=== PATIENT | male | born 1940 | race Hispanic/Latino ===

== ENCOUNTER 2019-01-18 20:54 | Inpatient (IN) | payer OTHER, MEDICARE ==
[~2019-01-18] VITALS: Ht 160 cm; Wt 83.0 kg
[~2019-01-18 20:54] MED LIST: ASPI-1197 PO; HYDR-4153 PO; LISI-613 PO; MULT-1285 PO; SIMV20TA6 PO
[2019-01-18] MEDS ORDERED: ACETAMINOPHEN 325 MG TAB ONE (21:08)
[2019-01-18] MEDS ORDERED: ONDANSETRON HCL 4 MG/2 ML VIAL ONE (21:08)
[2019-01-18 21:30] LABS: BASOPHILS % (AUTO) 0.1 % (0.0-5.0); HEMATOCRIT 34.5 % (42-54); LYMPHOCYTES % (AUTO) 2.9 % (21.0-51.0); MEAN CORPUSCULAR HEMOGLOBIN 31.2 pg (27.0-33.0); MEAN CORPUSCULAR HGB CONC 33.7 g/dL (32.0-36.0); MEAN CORPUSCULAR VOLUME 92.7 fL (79-99); MONOCYTES % (AUTO) 3.6 % (3.0-13.0); NEUTROPHILS % (AUTO) 93.4 % (40.0-77.0); PLATELET COUNT (AUTO) 147 K/uL (130-400); RED BLOOD CELL COUNT(AUTO) 3.73 MIL/uL (4.50-6.20); RED CELL DISTRIBUTION WIDTH 14.6 % (11.0-15.5); WHITE BLOOD COUNT (AUTO) 21.2 K/uL (4.8-10.8)
[2019-01-18] MEDS ORDERED: SODIUM CHLORIDE 0.9% 1000ML 1,000 ML IV ONE ×2 (21:35→23:40)
[2019-01-18 21:42] LABS: INR 1.2 (0.85-1.15); PARTIAL THROMBOPLASTIN TIME 33.4 SEC (26.3-35.5); PROTHROMBIN TIME 12.6 SEC (9.6-11.6)
[2019-01-18 21:49] LABS: CARBON DIOXIDE 19 mmol/L (21-32); CHLORIDE 102 mmol/L (101-111); CREATININE 3.2 mg/dL (0.5-1.5); GLOMERULAR FILTR. RATE CALC 20 mL/min (>60); GLUCOSE,RANDOM 102 mg/dL (70-105); POTASSIUM 4.1 mmol/L (3.5-5.1); SODIUM SERUM 137 mmol/L (136-145); UREA NITROGEN, BLOOD 38 mg/dL (7-18)
[2019-01-18 21:53] LABS: RAPID GROUP A STREP NEGATIVE (NEGATIVE)
[2019-01-18 22:27] LABS: ALANINE AMINOTRANSFERASE 16 U/L (12-78); ALBUMIN 3.2 g/dL (3.5-5.0); ASPARTATE AMINOTRANSFERASE 43 U/L (10-37); BILIRUBIN,TOTAL 0.9 mg/dL (0.2-1.0); MYOGLOBIN 4369 ng/mL (10-92); TOTAL PROTEIN, SERUM 6.7 g/dL (6.0-8.3); TROPONIN I < 0.04 ng/mL (0.00-0.06)
[2019-01-18 22:30] LABS: CREATINE KINASE, TOTAL 895 U/L (21-232)
[2019-01-18] MEDS ORDERED: LEVOFLOXACIN 500 MG/D5W 100 ML 100 ML ONE (22:53)
[2019-01-18] MEDS ORDERED: ACETAMINOPHEN 325 MG TAB PO PRN (23:00)
[2019-01-18] MEDS ORDERED: MORPHINE SULFATE 2 MG/ML 1ML SYG IV PRN (23:00)
[2019-01-18] MEDS ORDERED: ONDANSETRON HCL 4 MG/2 ML VIAL IV PRN (23:00)
[2019-01-19 01:30] VITALS: BP 104/54
[2019-01-19] MEDS: SODIUM CHLORIDE 0.9% 1000ML 1,000 ML IV SCH ×2 (01:46→15:56)
[2019-01-19] MEDS: METRONIDAZOLE 500MG/100ML BAG 100 ML IV SCH ×2 (01:46→08:50)
[2019-01-19] MEDS ORDERED: LEVO25TA54 PO (02:19)
[2019-01-19] MEDS ORDERED: POTA-79 PO (02:19)
[2019-01-19] MEDS ORDERED: ATOR20TA PO (02:19)
[2019-01-19] MEDS ORDERED: AMLO5TAB4 PO (02:19)
[2019-01-19] MEDS ORDERED: FERR325T22 PO (02:19)
[2019-01-19] MEDS ORDERED: FURO40TA5 PO (02:19)
[2019-01-19 04:00] VITALS: BP 124/54
[2019-01-19 04:23] LABS: BASOPHILS % (AUTO) 0.3 % (0.0-5.0); HEMATOCRIT 30.5 % (42-54); LYMPHOCYTES % (AUTO) 4.1 % (21.0-51.0); MEAN CORPUSCULAR HEMOGLOBIN 30.7 pg (27.0-33.0); NEUTROPHILS % (AUTO) 92.6 % (40.0-77.0); PLATELET COUNT (AUTO) 128 K/uL (130-400); RED BLOOD CELL COUNT(AUTO) 3.28 MIL/uL (4.50-6.20); RED CELL DISTRIBUTION WIDTH 14.7 % (11.0-15.5); WHITE BLOOD COUNT (AUTO) 16.4 K/uL (4.8-10.8)
[2019-01-19 04:41] LABS: CREATININE 2.9 mg/dL (0.5-1.5); POTASSIUM 4.4 mmol/L (3.5-5.1)
[2019-01-19] MEDS: LEVOTHYROXINE 25 MCG TABLET PO SCH (05:56)
--- NOTE | 2019-01-19 06:30 | NUR ---
Critical lab Received call regarding CK being 0722, aware of results patient also admitted with dx of rhabdo.
[2019-01-19 08:00] VITALS: BP 111/54
[2019-01-19] MEDS: POTASSIUM CHLORIDE 20 MEQ ERTAB PO SCH (08:49)
[2019-01-19] MEDS: FERROUS SULFATE 325 MG TABLET.DR PO SCH ×2 (08:49→21:07)
[2019-01-19] MEDS: ASPIRIN 81MG TAB.CHEW PO SCH (08:49)
[2019-01-19] MEDS: MULTIVITAMIN WITH MINERALS TABLET PO SCH (08:49)
[2019-01-19] MEDS: ENOXAPARIN SODIUM 30 MG/0.3 ML SQ SCH (08:50)
[2019-01-19] MEDS: AMLODIPINE BESYLATE 5 MG TAB PO SCH (08:50)
[2019-01-19] MEDS: FAMOTIDINE/PF 20 MG/2 ML VIAL IV SCH (08:51)
[2019-01-19] MEDS ORDERED: FUROSEMIDE 40 MG TABLET PO SCH (09:00)
[2019-01-19 12:00] VITALS: BP 114/55
--- NOTE | 2019-01-19 15:02 | NUR ---
DCP CM met with pt discussed dc plans. Pt is independent prior to admission, lives at home with spouse. Has a provider 18hrs/wk. Denies any equipments/services. Pt feels safe to go back home, spouse and son able to assist with transportation and needs. DC plan to home once stable. CM to cont to follow up. Addendum: 01/19/19 at 1503 by LESLEY FARFAN LVN CM Amended: Links added.
[2019-01-19] MEDS: CEFAZOLIN SODIUM 1 GM VIAL IVP SCH (15:56)
[2019-01-19 16:00] VITALS: BP 111/57
[2019-01-19] MEDS ORDERED: PHARMACY COMMUNICATION MISC SCH (16:30)
--- NOTE | 2019-01-19 18:07 | NUR ---
DR. PRECIADO JUST CALLED BACK. AWARE OF CONSULT. STATED HE WILL COME TO SEE PT LATER TODAY.
[2019-01-19] MEDS: LINEZOLID 600 MG/ISO-OSM 300 ML IV SCH (19:33)
[2019-01-19 20:00] VITALS: BP 115/52
[2019-01-19] MEDS: ATORVASTATIN CALCIUM 20 MG TABLET PO SCH (21:07)
[2019-01-20] VITALS (7 sets, daily range): BP systolic 97–122; BP diastolic 44–66
[2019-01-20 03:26] LABS: APPEARANCE,URINE Clear (CLEAR); BILIRUBIN,URINE Negative (NEGATIVE); COLOR,URINE Yellow (YELLOW); GLUCOSE, URINE (UA) Negative (NEGATIVE); KETONES,URINE Negative (NEGATIVE); LEUKOCYTE ESTERASE ,URINE Negative (NEGATIVE); NITRATE,URINE Negative (NEGATIVE); OCCULT BLOOD,URINE Moderate (NEGATIVE); PROTEIN,URINE POS 1+ mg/dL (NEGATIVE); UROBILINOGEN,URINE 0.2 mg/dL (0.2-1.0)
[2019-01-20 03:52] LABS: BASOPHILS % (AUTO) 0.2 % (0.0-5.0); EOSINOPHILS % (AUTO) 0.5 % (0.0-8.0); HEMATOCRIT 27.9 % (42-54); LYMPHOCYTES % (AUTO) 10.7 % (21.0-51.0); MEAN CORPUSCULAR HEMOGLOBIN 32.2 pg (27.0-33.0); MEAN CORPUSCULAR HGB CONC 34.4 g/dL (32.0-36.0); MEAN CORPUSCULAR VOLUME 93.6 fL (79-99); MONOCYTES % (AUTO) 6.7 % (3.0-13.0); NEUTROPHILS % (AUTO) 81.9 % (40.0-77.0); PLATELET COUNT (AUTO) 103 K/uL (130-400); RED BLOOD CELL COUNT(AUTO) 2.98 MIL/uL (4.50-6.20); RED CELL DISTRIBUTION WIDTH 14.4 % (11.0-15.5); WHITE BLOOD COUNT (AUTO) 11.2 K/uL (4.8-10.8)
[2019-01-20] MEDS: CEFAZOLIN SODIUM 1 GM VIAL IVP SCH ×2 (03:53→15:11)
[2019-01-20 04:08] LABS: CREATININE 2.7 mg/dL (0.5-1.5); POTASSIUM 3.5 mmol/L (3.5-5.1)
[2019-01-20 04:09] LABS: BACTERIA,URINE None Seen /HPF (None Seen); MUCUS,URINE Few LPF (None Seen); SQUAMOUS EPITHELIAL CELL,UR Few /HPF (0-2); WBC,URINE 0-1 /HPF (0-1)
[2019-01-20 04:18] LABS: CRP QUANTITATIVE 233.1 mg/L (0.00-9.0)
[2019-01-20 04:57] LABS: ERYTHROCYTE SEDIMENTATION RATE 40 MM/HR (0-20)
[2019-01-20] MEDS: LEVOTHYROXINE 25 MCG TABLET PO SCH (06:50)
[2019-01-20] MEDS: LINEZOLID 600 MG/ISO-OSM 300 ML IV SCH ×2 (06:51→18:02)
[2019-01-20] MEDS: AMLODIPINE BESYLATE 5 MG TAB PO SCH (09:00)
[2019-01-20] MEDS: ASPIRIN 81MG TAB.CHEW PO SCH (10:23)
[2019-01-20] MEDS: MULTIVITAMIN WITH MINERALS TABLET PO SCH (10:23)
[2019-01-20] MEDS: FERROUS SULFATE 325 MG TABLET.DR PO SCH ×2 (10:23→20:40)
[2019-01-20] MEDS: POTASSIUM CHLORIDE 20 MEQ ERTAB PO SCH (10:24)
[2019-01-20] MEDS: ENOXAPARIN SODIUM 30 MG/0.3 ML SQ SCH (10:25)
[2019-01-20] MEDS: FAMOTIDINE/PF 20 MG/2 ML VIAL IV SCH (10:25)
[2019-01-20] MEDS: SODIUM CHLORIDE 0.9% 1000ML 1,000 ML IV SCH ×2 (10:33→14:31)
--- NOTE | 2019-01-20 14:00 | NUR ---
DR. HEMANT TRIVEDI HERE TO SEE PATIENT. TOLD PATIENT THAT HE MAY REQUIRE IV ANTIBIOTICS FOR 3 WEEKS.
--- NOTE | 2019-01-20 14:16 | NUR ---
DR. ILANA TRIVEDI HERE TO SEE PATIENT. NO NEW ORDERS. RECOMMENDS TO CONTINUE IV ANTIBIOTICS FOR NOW AND IV HYDRATION.
--- NOTE | 2019-01-20 18:00 | NUR ---
cm note discussed dc planning with 3 sons present in room and with pt, informed that md has ordered iv antibiotic therapy,for approx 3 weeks. and is recommending [facility], explained level of care.and answered questions, pt is hesistant to sign consent, would like to speak to MD first, pt and sons did agree for rep from [facility], come and speak to him and sons at 230pm tomorrow. in order to discuss questions they have about facility. called Mandi rep from [facility] and states will come and speak to pt tomorrow at 230pmupdated primary nurse.
[2019-01-20] MEDS: ATORVASTATIN CALCIUM 20 MG TABLET PO SCH (20:40)
[2019-01-20] MEDS ORDERED: LEVOFLOXACIN 500 MG/D5W 100 ML 100 ML IV SCH (21:00)
[2019-01-21] MEDS: SODIUM CHLORIDE 0.9% 1000ML 1,000 ML IV SCH ×2 (03:46→17:52)
[2019-01-21] MEDS: CEFAZOLIN SODIUM 1 GM VIAL IVP SCH ×2 (03:52→15:04)
[2019-01-21 04:00] VITALS: BP 100/51
[2019-01-21 05:14] LABS: HEMATOCRIT 26.4 % (42-54); MEAN CORPUSCULAR HEMOGLOBIN 30.9 pg (27.0-33.0); MEAN CORPUSCULAR HGB CONC 33.4 g/dL (32.0-36.0); MEAN CORPUSCULAR VOLUME 92.6 fL (79-99); PLATELET COUNT (AUTO) 97 K/uL (130-400); RED BLOOD CELL COUNT(AUTO) 2.85 MIL/uL (4.50-6.20); RED CELL DISTRIBUTION WIDTH 14.8 % (11.0-15.5); WHITE BLOOD COUNT (AUTO) 6.4 K/uL (4.8-10.8)
[2019-01-21 05:30] LABS: BASOPHILS % (MANUAL) 1 % (0-2); EOSINOPHILS % (MANUAL) 2 % (1-6); LYMPHOCYTES % (MANUAL) 9 % (22-44); MAN.DIFF COMMENT-IMPRESSION MANUAL DIFFERENTIAL; MONOCYTES % (MANUAL) 6 % (2-9); SEGMENTED NEUTROPHILS % 82 % (40-70)
[2019-01-21 05:31] LABS: PLATELET MORPHOLOGY COMMENT ADEQUATE
[2019-01-21 05:34] LABS: CREATININE 1.7 mg/dL (0.5-1.5)
[2019-01-21] MEDS: LEVOTHYROXINE 25 MCG TABLET PO SCH (06:22)
[2019-01-21] MEDS: LINEZOLID 600 MG/ISO-OSM 300 ML IV SCH ×2 (06:22→18:43)
[2019-01-21 08:00] VITALS: BP 107/53
[2019-01-21] MEDS: AMLODIPINE BESYLATE 5 MG TAB PO SCH (09:00)
[2019-01-21] MEDS: ENOXAPARIN SODIUM 30 MG/0.3 ML SQ SCH (09:00)
[2019-01-21] MEDS ORDERED: CALCIUM GLUCONATE 1 GM/10 ML VIAL IV SCH (09:30)
[2019-01-21] MEDS ORDERED: CALCIUM GLUCONATE 1 GM in SODIUM CHLORIDE 0.9% 50 ML IV SCH (10:00)
--- NOTE | 2019-01-21 10:00 | NUR ---
LOVENOX NON-ADMIN DID NOT ADMINISTER SCHEDULED LOVENOX DUE TO PLATELET RESULT 97. INFORMED DR. WHITESIDE AND ORDERED NOT TO ADMINISTER LOVENOX FOR TODAY.
[2019-01-21] MEDS ORDERED: POTASSIUM CHLORIDE 20MEQ/100ML 100 ML IV PRN (10:15)
[2019-01-21] MEDS ORDERED: POTASSIUM CHLORIDE 10% ELIXIR 20 MEQ/15 ML UDCUP PO PRN (10:15)
[2019-01-21] MEDS ORDERED: LIDOCAINE HCL-MPF 1% 2ML VIAL IVP PRN (10:15)
[2019-01-21] MEDS: POTASSIUM CHLORIDE 20 MEQ ERTAB PO SCH ×2 (10:43→12:49)
[2019-01-21] MEDS: FERROUS SULFATE 325 MG TABLET.DR PO SCH ×2 (10:43→21:04)
[2019-01-21] MEDS: MULTIVITAMIN WITH MINERALS TABLET PO SCH (10:43)
[2019-01-21] MEDS: ASPIRIN 81MG TAB.CHEW PO SCH (10:43)
[2019-01-21] MEDS: FAMOTIDINE/PF 20 MG/2 ML VIAL IV SCH (10:44)
[2019-01-21 11:18] LABS: % IRON SATURATION 22.5 % (30-44)
[2019-01-21] MEDS ORDERED: MAGNESIUM 2GM PREMIX 50ML 50 ML IV PRN (11:45)
[2019-01-21 11:50] VITALS: BP 114/51
[2019-01-21] MEDS: POTASSIUM CHLORIDE 20 MEQ ERTAB PO PRN ×3 (12:49→17:59)
[2019-01-21 16:00] VITALS: BP 116/60
[2019-01-21 20:00] VITALS: BP 118/67
[2019-01-21] MEDS: ATORVASTATIN CALCIUM 20 MG TABLET PO SCH (21:04)
[2019-01-22] VITALS: BP 117/54
[2019-01-22 04:00] VITALS: BP 87/42
[2019-01-22 05:04] LABS: HEMATOCRIT 27.2 % (42-54); MEAN CORPUSCULAR HEMOGLOBIN 32.3 pg (27.0-33.0); MEAN CORPUSCULAR HGB CONC 34.7 g/dL (32.0-36.0); MEAN CORPUSCULAR VOLUME 93.1 fL (79-99); NUCLEATED RED BLOOD CELLS 0.1 % (0.0-0.19); PLATELET COUNT (AUTO) 92 K/uL (130-400); RED BLOOD CELL COUNT(AUTO) 2.92 MIL/uL (4.50-6.20); RED CELL DISTRIBUTION WIDTH 14.7 % (11.0-15.5); WHITE BLOOD COUNT (AUTO) 5.6 K/uL (4.8-10.8)
[2019-01-22 05:12] LABS: BAND NEUTROPHILS % (MANUAL) 2 % (0-2); EOSINOPHILS % (MANUAL) 2 % (1-6); LYMPHOCYTES % (MANUAL) 18 % (22-44); MAN.DIFF COMMENT-IMPRESSION MANUAL DIFFERENTIAL; MONOCYTES % (MANUAL) 11 % (2-9); PLATELET MORPHOLOGY COMMENT ADEQUATE; SEGMENTED NEUTROPHILS % 67 % (40-70)
[2019-01-22 05:31] LABS: ALBUMIN 2.2 g/dL (3.5-5.0); BILIRUBIN,TOTAL 0.2 mg/dL (0.2-1.0); CREATININE 2.2 mg/dL (0.5-1.5); MAGNESIUM 2.4 mg/dL (1.80-2.40); POTASSIUM 4.6 mmol/L (3.5-5.1); TOTAL PROTEIN, SERUM 5.1 g/dL (6.0-8.3)
[2019-01-22] MEDS: LINEZOLID 600 MG/ISO-OSM 300 ML IV SCH ×2 (05:49→16:58)
[2019-01-22] MEDS: CEFAZOLIN SODIUM 1 GM VIAL IVP SCH ×2 (05:49→16:42)
[2019-01-22] MEDS: LEVOTHYROXINE 25 MCG TABLET PO SCH (06:15)
[2019-01-22 07:51] VITALS: BP 117/58
[2019-01-22] MEDS: ENOXAPARIN SODIUM 30 MG/0.3 ML SQ SCH (09:00)
[2019-01-22] MEDS: FERROUS SULFATE 325 MG TABLET.DR PO SCH ×2 (09:17→20:49)
[2019-01-22] MEDS: ASPIRIN 81MG TAB.CHEW PO SCH (09:17)
[2019-01-22] MEDS: AMLODIPINE BESYLATE 5 MG TAB PO SCH (09:18)
[2019-01-22] MEDS: POTASSIUM CHLORIDE 20 MEQ ERTAB PO SCH (09:18)
[2019-01-22] MEDS: FAMOTIDINE/PF 20 MG/2 ML VIAL IV SCH (09:18)
[2019-01-22] MEDS: MULTIVITAMIN WITH MINERALS TABLET PO SCH (09:18)
--- NOTE | 2019-01-22 09:21 | NUR ---
LOVENOX HELD, PLT. COUNT BELOW 100.
[2019-01-22 12:00] VITALS: BP 119/57
--- NOTE | 2019-01-22 14:45 | NUR ---
DR. MARCOS IN TO SEE PT. ORDER FOR PICC LINE PLACEMENT ENTERED.
[2019-01-22 16:00] VITALS: BP 125/50
[2019-01-22 16:13] LABS: INR 0.97 (0.85-1.15); PROTHROMBIN TIME 10.2 SEC (9.6-11.6)
--- NOTE | 2019-01-22 16:30 | NUR ---
ZOLTAN WITH DR. PEREZ CALLED, PER PT. AT THIS TIME DOES NOT NEED TO BE SEEN BY HER BUT HE CAN FOLLOW UP AN OUT PATIENT. PATIENT AND FAMILY NOTIFIED.
[2019-01-22] MEDS: SODIUM CHLORIDE 0.9% 1000ML 1,000 ML IV SCH ×2 (16:58→19:46)
--- NOTE | 2019-01-22 18:00 | NUR ---
PICC LINE PLACED RT. UPPER ARM BY MANDI HWANG
[2019-01-22 20:00] VITALS: BP 143/69
[2019-01-22] MEDS: ATORVASTATIN CALCIUM 20 MG TABLET PO SCH (20:49)
[2019-01-23] VITALS: BP 97/49
[2019-01-23] MEDS: CEFAZOLIN SODIUM 1 GM VIAL IVP SCH ×2 (03:25→15:52)
[2019-01-23 04:00] VITALS: BP 97/40
[2019-01-23 04:42] LABS: BASOPHILS % (AUTO) 0.4 % (0.0-5.0); EOSINOPHILS % (AUTO) 3.2 % (0.0-8.0); LYMPHOCYTES % (AUTO) 24.1 % (21.0-51.0); MEAN CORPUSCULAR HGB CONC 33.3 g/dL (32.0-36.0); MONOCYTES % (AUTO) 11.2 % (3.0-13.0); NEUTROPHILS % (AUTO) 61.1 % (40.0-77.0); NUCLEATED RED BLOOD CELLS 0.1 % (0.0-0.19); PLATELET COUNT (AUTO) 114 K/uL (130-400); RED CELL DISTRIBUTION WIDTH 14.5 % (11.0-15.5); WHITE BLOOD COUNT (AUTO) 5.2 K/uL (4.8-10.8)
[2019-01-23 05:05] LABS: CREATININE 1.9 mg/dL (0.5-1.5); POTASSIUM 4.3 mmol/L (3.5-5.1)
[2019-01-23] MEDS: LINEZOLID 600 MG/ISO-OSM 300 ML IV SCH ×2 (06:33→17:48)
[2019-01-23] MEDS: LEVOTHYROXINE 25 MCG TABLET PO SCH (06:35)
[2019-01-23 08:00] VITALS: BP 114/55
[2019-01-23] MEDS: MULTIVITAMIN WITH MINERALS TABLET PO SCH (10:23)
[2019-01-23] MEDS: FERROUS SULFATE 325 MG TABLET.DR PO SCH ×2 (10:23→21:13)
[2019-01-23] MEDS: FAMOTIDINE/PF 20 MG/2 ML VIAL IV SCH (10:23)
[2019-01-23] MEDS: AMLODIPINE BESYLATE 5 MG TAB PO SCH (10:23)
[2019-01-23] MEDS: ASPIRIN 81MG TAB.CHEW PO SCH (10:23)
[2019-01-23] MEDS: ENOXAPARIN SODIUM 30 MG/0.3 ML SQ SCH (10:24)
[2019-01-23] MEDS: POTASSIUM CHLORIDE 20 MEQ ERTAB PO SCH (10:24)
[2019-01-23 11:40] VITALS: BP 124/51
[2019-01-23 16:00] VITALS: BP 136/67
--- NOTE | 2019-01-23 17:10 | NUR ---
FRANK PANTOJA FOR [facility] Addendum: 01/23/19 at 1937 by MARLEN AMARAL RN CM Amended: Links added.
[2019-01-23 20:00] VITALS: BP 124/58
[2019-01-23] MEDS: ATORVASTATIN CALCIUM 20 MG TABLET PO SCH (21:13)
[2019-01-23] MEDS: SODIUM CHLORIDE 0.9% 1000ML 1,000 ML IV SCH (21:14)
[2019-01-24] VITALS: BP 123/53
[2019-01-24 04:00] VITALS: BP 111/42
[2019-01-24] MEDS: LEVOTHYROXINE 25 MCG TABLET PO SCH (05:22)
[2019-01-24] MEDS: LINEZOLID 600 MG/ISO-OSM 300 ML IV SCH (05:22)
[2019-01-24] MEDS: CEFAZOLIN SODIUM 1 GM VIAL IVP SCH (05:22)
[2019-01-24 06:49] LABS: BASOPHILS % (AUTO) 0.6 % (0.0-5.0); EOSINOPHILS % (AUTO) 4.2 % (0.0-8.0); HEMATOCRIT 26.6 % (42-54); LYMPHOCYTES % (AUTO) 22.7 % (21.0-51.0); MEAN CORPUSCULAR HGB CONC 34.5 g/dL (32.0-36.0); MEAN CORPUSCULAR VOLUME 92.8 fL (79-99); MONOCYTES % (AUTO) 8.2 % (3.0-13.0); NEUTROPHILS % (AUTO) 64.3 % (40.0-77.0); PLATELET COUNT (AUTO) 141 K/uL (130-400); RED BLOOD CELL COUNT(AUTO) 2.87 MIL/uL (4.50-6.20); RED CELL DISTRIBUTION WIDTH 14.4 % (11.0-15.5)
[2019-01-24 06:53] LABS: CREATININE 1.7 mg/dL (0.5-1.5); POTASSIUM 4.1 mmol/L (3.5-5.1)
[2019-01-24 07:51] VITALS: BP 127/51
[2019-01-24] MEDS: AMLODIPINE BESYLATE 5 MG TAB PO SCH (09:00)
[2019-01-24 11:36] VITALS: BP 131/50
[2019-01-24] MEDS: SODIUM CHLORIDE 0.9% 1000ML 1,000 ML IV SCH (12:11)
[2019-01-24] MEDS: MULTIVITAMIN WITH MINERALS TABLET PO SCH (12:11)
[2019-01-24] MEDS: POTASSIUM CHLORIDE 20 MEQ ERTAB PO SCH (12:12)
[2019-01-24] MEDS: ASPIRIN 81MG TAB.CHEW PO SCH (12:12)
[2019-01-24] MEDS: FAMOTIDINE/PF 20 MG/2 ML VIAL IV SCH (12:12)
[2019-01-24] MEDS: FERROUS SULFATE 325 MG TABLET.DR PO SCH (12:12)
[2019-01-24] MEDS: ENOXAPARIN SODIUM 30 MG/0.3 ML SQ SCH (12:14)
--- NOTE | 2019-01-24 13:35 | NUR ---
ATTEMPTED TO CALL [facility] TO GIVE REPORT TRANSFERRED TO NURSES STATION AND PLACED ON HOLD. NO ANSWER FOR APPROXIMATELY 8 MINUTES.
--- NOTE | 2019-01-24 13:48 | NUR ---
RE-ATTEMPTED TO CALL [facility] WAS TRANSFERRED TO NURSES STATION AND RECEIVED AUTOMATED MESSAGE THAT MY CALL IS UNABLE TO BE ANSWERED.
--- NOTE | 2019-01-24 14:03 | NUR ---
REATTEMPTED TO CALL [facility] FOR REPORT SPOKE TO KATTY [phone] WHO TOLD ME THAT THE NURSE WAS BUSY WITH A PATIENT AND WOULD RETURN MY CALL IN ABOUT 30 MINUTES
--- NOTE | 2019-01-24 14:45 | NUR ---
DISCHARGE RECEIVED CALLBACK FROM JUDI Pichardo LVN OF [facility] [id number]. INFORMED LIYAH LAU THAT ORIGINAL RX (ANCEF, DIFLUCAN) PLACED IN PATIENT CHART COPY FOLDER AND LAST TIME DOSE GIVEN. MEDICATION RECONCILIATION PAPERWORK FAXED TO [facility] [phone]. CHEST XRAY REPORT PLACED IN PATIENT CHART COPY PER LIYAH LAU REQUEST. REMOVED 20G IV FROM RIGHT FA, CATHETER TIP INTACT. PATIENT TO BE DISCHARGE WITH RIGHT UPPER ARM 5 FR PICC LINE, DOUBLE LUMEN. BOTH LUMENS FLUSHED WITH SALINE AND ABLE TO ASPIRATE BLOOD IN EACH PORT, PICC LINE DRESSING CLEAN AND INTACT AT TIME OF DISCHARGE. LIYAH LAU INFORMED THAT PATIENT IS READY FOR PICKUP IN ROOM 419.
== END 2019-01-24 15:20 | DRG 871 ==
LOC: EDH 20:54 → EDHIP 22:45 → 4CH 01-19 01:30
PROVIDERS: ADMIT Internal Medicine; ATTEND Internal Medicine
PROC: 02HV33Z Insertion of Infusion Device into Superior Vena Cava, Percutaneous Approach (ICD-10-PCS; principal; 2019-01-22)
DX: A41.9 Sepsis, unspecified organism (principal); N17.0 Acute kidney failure with tubular necrosis; N18.4 Chronic kidney disease, stage 4 (severe); M62.82 Rhabdomyolysis; E87.2 Acidosis; E44.0 Moderate protein-calorie malnutrition; L03.116 Cellulitis of left lower limb; L03.115 Cellulitis of right lower limb; K52.9 Noninfective gastroenteritis and colitis, unspecified; R65.20 Severe sepsis without septic shock; K44.9 Diaphragmatic hernia without obstruction or gangrene; Q63.1 Lobulated, fused and horseshoe kidney; E11.22 Type 2 diabetes mellitus with diabetic chronic kidney disease; I12.9 Hypertensive chronic kidney disease with stage 1 through stage 4 chronic kidney disease, or unspecified chronic kidney disease; K57.30 Diverticulosis of large intestine without perforation or abscess without bleeding; E66.9 Obesity, unspecified; I89.0 Lymphedema, not elsewhere classified; E83.51 Hypocalcemia; D63.1 Anemia in chronic kidney disease; E78.5 Hyperlipidemia, unspecified; B35.9 Dermatophytosis, unspecified; D69.6 Thrombocytopenia, unspecified; E03.9 Hypothyroidism, unspecified; E11.21 Type 2 diabetes mellitus with diabetic nephropathy; F32.9 Major depressive disorder, single episode, unspecified; M60.9 Myositis, unspecified; Z68.32 Body mass index [BMI] 32.0-32.9, adult; Z86.79 Personal history of other diseases of the circulatory system; Z83.3 Family history of diabetes mellitus; Z82.5 Family history of asthma and other chronic lower respiratory diseases; Z82.49 Family history of ischemic heart disease and other diseases of the circulatory system; Z82.3 Family history of stroke; Z82.0 Family history of epilepsy and other diseases of the nervous system
CPT/HCPCS: 36415; 71045; 74176; 80048; 80053; 81001; 82270; 82550; 82607; 82746; 83540; 83550; 83605; 83735; 83874; 83880; 84484; 85025; 85610; 85651; 85730; 86140; 87040; 87088; 87507; 87804; 87880; 93005; 93970; C1894; G0378; J0610; J0690; J1650; J1956; J2020; J2405; J3475; J3480; J3490; J7030

== ENCOUNTER 2020-01-19 12:50 | Inpatient (IN) | payer OTHER, MEDICARE ==
[~2020-01-19] VITALS: Ht 175.3 cm; Wt 81.7 kg
[~2020-01-19 12:50] MED LIST changes: +AMLO5TAB4 PO; +ATOR20TA PO; +FERR325T22 PO; +FURO40TA5 PO; -HYDR-4153 PO; +LEVO25TA54 PO; -LISI-613 PO; +POTA-79 PO; -SIMV20TA6 PO
[2020-01-19 14:04] LABS: BASOPHILS % (AUTO) 0.1 % (0.0-5.0); HEMATOCRIT 31.1 % (42-54); LYMPHOCYTES % (AUTO) 5.2 % (21.0-51.0); MEAN CORPUSCULAR HEMOGLOBIN 29.9 pg (27.0-33.0); MEAN CORPUSCULAR HGB CONC 34.1 g/dL (32.0-36.0); MEAN CORPUSCULAR VOLUME 87.9 fL (79-99); MONOCYTES % (AUTO) 10.3 % (3.0-13.0); NEUTROPHILS % (AUTO) 83.6 % (40.0-77.0); PLATELET COUNT (AUTO) 117 K/uL (130-400); RED BLOOD CELL COUNT(AUTO) 3.54 MIL/uL (4.50-6.20); RED CELL DISTRIBUTION WIDTH 13.8 % (11.0-15.5); WHITE BLOOD COUNT (AUTO) 8.9 K/uL (4.8-10.8)
[2020-01-19 14:14] LABS: INR 0.95 (0.85-1.15); PARTIAL THROMBOPLASTIN TIME 32.1 SEC (26.3-35.5); PROTHROMBIN TIME 10.3 SEC (9.6-11.6)
[2020-01-19 14:18] LABS: ALBUMIN 2.4 g/dL (3.5-5.0); BILIRUBIN,TOTAL 1.2 mg/dL (0.2-1.0); CREATININE 3.2 mg/dL (0.5-1.5); POTASSIUM 3.1 mmol/L (3.5-5.1); TOTAL PROTEIN, SERUM 6.4 g/dL (6.0-8.3)
[2020-01-19 14:21] LABS: B-TYPE NATRIURETIC PEPTIDE 263 pg/mL (0-100)
[2020-01-19] MEDS ORDERED: ZOSYN 3.375GM+NS 50ML 50 ML IV ONE (14:21)
[2020-01-19] MEDS ORDERED: DEXAMETHASONE SOD PHOSPHATE 4 MG/ML 1ML VIAL ONE (14:21)
[2020-01-19] MEDS ORDERED: VANCOMYCIN 1GM+NS 250ML 250 ML IV ONE (14:21)
[2020-01-19] MEDS ORDERED: HYDRALAZINE HCL 20 MG/ML VIAL IV PRN (14:30)
[2020-01-19] MEDS ORDERED: LACTULOSE 20 GM/30 ML UDCUP PO PRN (14:30)
[2020-01-19] MEDS ORDERED: LABETALOL 20 MG/4 ML DISP.SYRIN IV PRN (14:30)
[2020-01-19] MEDS ORDERED: ZOLPIDEM TARTRATE 5 MG TAB PO PRN (14:30)
[2020-01-19] MEDS ORDERED: LOPERAMIDE HCL 2 MG CAP PO PRN (14:30)
[2020-01-19] MEDS ORDERED: ONDANSETRON HCL 4 MG/2 ML VIAL IVP PRN (14:30)
[2020-01-19] MEDS ORDERED: ALBUTEROL SULFATE/IPRATROPIUM 103/18 MCG/PUFF 14.7 GM INHR IH SCH (23:30)
[2020-01-19] MEDS ORDERED: SODIUM BICARB 50MEQ 50ML VIAL IV ONE (23:30)
[2020-01-19] MEDS ORDERED: DEXTROSE 5 % AND 0.9 % NACL 1,000 ML IV SCH (23:30)
[2020-01-19] MEDS ORDERED: ASPIRIN 325MG EC TAB 325 MG TABLET.DR PO SCH (23:30)
[2020-01-19] MEDS ORDERED: PHARMACY COMMUNICATION MISC SCH (23:30)
[2020-01-19] MEDS ORDERED: ENOXAPARIN SODIUM 40 MG/0.4 ML SYRINGE SQ SCH (23:30)
[2020-01-19] MEDS ORDERED: DEXTROSE 5 %-0.45 % NACL 1,000 ML IV ONE (23:36)
[2020-01-19] MEDS ORDERED: ACETAMINOPHEN 325 MG TAB PO PRN (23:45)
[2020-01-19] MEDS ORDERED: FAMOTIDINE/PF 20 MG/2 ML VIAL IV SCH (23:45)
[2020-01-19] MEDS ORDERED: DEXTROSE 5 %-0.45 % NACL 1,000 ML IV SCH (23:45)
--- NOTE | 2020-01-19 23:45 | NUR ---
CRITICAL RESULTS OF A LACTIC ACID OF 3.1 CALLED IN TO . TY SETHI NP CALLED BACK. NEW ORDERS RECEIVED AND CARRIED OUT. 16FR WRIGHT CATHETER INSERTED USING STERILE TECHNIQUE. PATIENT TOLERATED WELL. UA SENT TO LAB PER MD ORDERS. VITALS STABLE. AFEBRILE. ORAL CARE GIVEN. 2 AMPS OF BICARB GIVEN IVP. HOB ELEVATED. NO SIGNS OF DISTRESS NOTED AT THIS TIME. WILL CONTINUE TO BE OBSERVED. NURSE CALLED JOHN SCHERER WITH PATIENT UPDATE. ALL QUESTIONS ANSWERED. CALL LIGHT WITHIN REACH. Addendum: 01/20/20 at 0557 by ROHAN DOOLEY RN RN Amended: Links added.
[2020-01-19 23:50] LABS: ABG BASE EXCESS -7.7 mmol/L (-2.0-3.0); ABG HCO3 14.6 mmol/L (21.0-28.0); ABG OXYGEN SATURATION 93.1 % (95.0-99.0); ABG PCO2 23 mmHg (35-48)
[2020-01-19] MEDS ORDERED: SODIUM BICARB 50MEQ 50ML VIAL ONE (23:56)
[2020-01-19 23:59] LABS: APPEARANCE,URINE Cloudy (CLEAR); BILIRUBIN,URINE Negative (NEGATIVE); COLOR,URINE Dark Yellow (YELLOW); GLUCOSE, URINE (UA) Negative (NEGATIVE); KETONES,URINE Negative (NEGATIVE); LEUKOCYTE ESTERASE ,URINE Trace (NEGATIVE); NITRATE,URINE Negative (NEGATIVE); OCCULT BLOOD,URINE Large (NEGATIVE); PH,URINE 5.5 (5.0-8.0); PROTEIN,URINE POS 2+ mg/dL (NEGATIVE)
[2020-01-20] MEDS ORDERED: SODIUM BICARB 50MEQ 50ML VIAL IV ONE
[2020-01-20] MEDS ORDERED: ENOXAPARIN SODIUM 40 MG/0.4 ML SYRINGE SQ ONE ×2 (00:17→22:54)
[2020-01-20] MEDS ORDERED: ASPIRIN 325 MG TABLET ONE ×2 (00:17→22:54)
[2020-01-20] MEDS ORDERED: FAMOTIDINE/PF 20 MG/2 ML VIAL IV ONE ×2 (00:18→10:48)
[2020-01-20] MEDS ORDERED: ACETAMINOPHEN 325 MG TAB ONE (00:18)
[2020-01-20] MEDS ORDERED: ASPIRIN 325MG EC TAB 325 MG TABLET.DR PO ONE (00:21)
[2020-01-20 00:41] LABS: BACTERIA,URINE None Seen /HPF (None Seen); WBC,URINE 0-1 /HPF (0-1)
[2020-01-20] MEDS ORDERED: ZOSYN 3.375GM+NS 50ML 50 ML IV SCH (05:30)
[2020-01-20] MEDS ORDERED: ZOSYN 3.375GM+NS 50ML 50 ML IV ONE ×3 (05:57→22:54)
[2020-01-20] MEDS ORDERED: BUDESONIDE 0.5 MG/2 ML INH IH SCH (06:00)
[2020-01-20 06:32] LABS: BASOPHILS % (AUTO) 0.3 % (0.0-5.0); HEMATOCRIT 30.9 % (42-54); LYMPHOCYTES % (AUTO) 6.3 % (21.0-51.0); MEAN CORPUSCULAR HEMOGLOBIN 30.1 pg (27.0-33.0); MEAN CORPUSCULAR HGB CONC 34.3 g/dL (32.0-36.0); MEAN CORPUSCULAR VOLUME 87.8 fL (79-99); MONOCYTES % (AUTO) 8.5 % (3.0-13.0); PLATELET COUNT (AUTO) 140 K/uL (130-400); RED BLOOD CELL COUNT(AUTO) 3.52 MIL/uL (4.50-6.20); RED CELL DISTRIBUTION WIDTH 14.1 % (11.0-15.5); WHITE BLOOD COUNT (AUTO) 9.3 K/uL (4.8-10.8)
[2020-01-20 06:45] LABS: ALBUMIN 2.1 g/dL (3.5-5.0); BILIRUBIN,DIRECT 0.7 mg/dL (0.0-0.3); BILIRUBIN,TOTAL 2.1 mg/dL (0.2-1.0); CREATININE 3.1 mg/dL (0.5-1.5); MAGNESIUM 3.2 mg/dL (1.80-2.40); PHOSPHORUS 3.7 mg/dL (2.5-4.9); POTASSIUM 3.6 mmol/L (3.5-5.1); TOTAL PROTEIN, SERUM 6.5 g/dL (6.0-8.3)
[2020-01-20 06:51] LABS: CRP QUANTITATIVE 450.7 mg/L (0.00-9.0)
[2020-01-20] MEDS ORDERED: DEXAMETHASONE SOD PHOSPHATE 4 MG/ML 1ML VIAL IVP SCH (09:00)
[2020-01-20] MEDS ORDERED: ASPIRIN 81MG TAB.CHEW PO SCH (09:00)
[2020-01-20] MEDS ORDERED: SODIUM BICARBONATE 650 MG TAB PO SCH (09:00)
[2020-01-20] MEDS ORDERED: PANTOPRAZOLE SODIUM 40 MG TABLET.DR PO SCH (09:00)
[2020-01-20] MEDS ORDERED: ENOXAPARIN SODIUM 40 MG/0.4 ML SYRINGE SQ SCH (09:00)
[2020-01-20] MEDS ORDERED: ENOXAPARIN SODIUM 80 MG/0.8 ML SQ ONE (10:47)
[2020-01-20] MEDS ORDERED: DEXAMETHASONE SOD PHOSPHATE 4 MG/ML 1ML VIAL ONE (10:48)
[2020-01-20] MEDS ORDERED: ASPIRIN 81MG TAB.CHEW ONE (10:48)
--- NOTE | 2020-01-20 12:09 | NUR ---
INITIAL SW spoke with granddaughter, Faye Ramirez. Patient lives with spouse, Glenny Ramirez, [phone]. Another emergency contact is son, Alisa Ramirez, [phone]. No home health but has PHC with [facility] X 17.5 hours a week. DME: BPM. Patient is able to complete ADL's independently but does not drive. Family assists with transportation. PCP is Dr. Kanu Sal. Pharmacy is [facility] located in [place]. DCP is home. Addendum: 01/20/20 at 1212 by TRACE TURPIN Amended: Links added.
[2020-01-20] MEDS ORDERED: ALBUTEROL INHALER 90MCG/INH IH ONE (13:00)
[2020-01-21] MEDS ORDERED: BUDESONIDE 0.5 MG/2 ML INH IH SCH (02:00)
[2020-01-21] MEDS ORDERED: NOREPINEPHRINE 4MG/NS 250ML 250 ML IV ONE ×2 (05:06→06:24)
[2020-01-21 05:18] LABS: BASOPHILS % (AUTO) 0.2 % (0.0-5.0); HEMATOCRIT 27.8 % (42-54); LYMPHOCYTES % (AUTO) 11.7 % (21.0-51.0); MEAN CORPUSCULAR HEMOGLOBIN 31.8 pg (27.0-33.0); MEAN CORPUSCULAR HGB CONC 33.5 g/dL (32.0-36.0); MEAN CORPUSCULAR VOLUME 95.2 fL (79-99); MONOCYTES % (AUTO) 7.5 % (3.0-13.0); NEUTROPHILS % (AUTO) 77.6 % (40.0-77.0); NUCLEATED RED BLOOD CELLS 1.2 % (0.0-0.19); PLATELET COUNT (AUTO) 263 K/uL (130-400); RED BLOOD CELL COUNT(AUTO) 2.92 MIL/uL (4.50-6.20); RED CELL DISTRIBUTION WIDTH 14.6 % (11.0-15.5); WHITE BLOOD COUNT (AUTO) 13.8 K/uL (4.8-10.8)
[2020-01-21 05:34] LABS: CREATININE 3.6 mg/dL (0.5-1.5); POTASSIUM 4.8 mmol/L (3.5-5.1)
[2020-01-21 05:35] LABS: B-TYPE NATRIURETIC PEPTIDE 833 pg/mL (0-100)
[2020-01-21] MEDS ORDERED: PROPOFOL 1000 MG/100 ML 100 ML IV ONE (06:09)
[2020-01-21 06:30] LABS: ALBUMIN 1.7 g/dL (3.5-5.0); BILIRUBIN,DIRECT 0.8 mg/dL (0.0-0.3); BILIRUBIN,TOTAL 2.3 mg/dL (0.2-1.0); TOTAL PROTEIN, SERUM 5.7 g/dL (6.0-8.3)
[2020-01-21 06:39] LABS: ABG BASE EXCESS -22.8 mmol/L (-2.0-3.0); ABG HCO3 9.6 mmol/L (21.0-28.0); ABG OXYGEN SATURATION 88.9 % (95.0-99.0); ABG PCO2 47 mmHg (35-48)
[2020-01-21] MEDS ORDERED: SODIUM BICARB 8.4% 50ML SYRING 150 MEQ in DEXTROSE 5%-WATER 1,000 ML IVP SCH (07:15)
--- NOTE | 2020-01-21 07:42 | NUR ---
Patient still in ER department, awaiting for patient o be transferred to medical floor in order to be able to initiate skilled Physical Therapy Evaluation as ordered by Samantha Sparks,[facility] Addendum: 01/21/20 at 0744 by BRANDON VILLANUEVA, PT PT Amended: Links added.
[2020-01-21] MEDS ORDERED: SODIUM BICARB 50MEQ 50ML VIAL ONE (07:49)
--- NOTE | 2020-01-22 08:22 | NUR ---
pt. still in ER,awaiting for patient to be transferred to medical floor in order to be able to initiate skilled Physical Therapy Evaluation as previously ordered by Samantha Sparks,[facility] Addendum: 01/22/20 at 0823 by BRANDON VILLANUEVA, PT PT Amended: Links added.
--- NOTE | 2020-01-22 08:23 | NUR ---
wrong entry by care provider dated 01/22/2020 at 08:22. Found out from JOELLE Qureshitrack welder that patient . Addendum: 01/22/20 at 1325 by BRANDON VILLANUEVA, PT PT Amended: Links added.
== END 2020-01-21 11:28 | disposition expired | DRG 871 ==
LOC: EDH 12:50 → EDHIP 14:48 → OBSVTOIN 14:48 → EDHIP 01-21 09:30
PROVIDERS: ADMIT Internal Medicine Critical Care Medicine; ATTEND Internal Medicine Critical Care Medicine
PROC: 0BH17EZ Insertion of Endotracheal Airway into Trachea, Via Natural or Artificial Opening (ICD-10-PCS; principal; 2020-01-21)
PROC: 5A1935Z Respiratory Ventilation, Less than 24 Consecutive Hours (ICD-10-PCS; 2020-01-21)
PROC: 5A12012 Performance of Cardiac Output, Single, Manual (ICD-10-PCS; 2020-01-21)
DX: A41.9 Sepsis, unspecified organism (principal); U07.1 COVID-19; E43 Unspecified severe protein-calorie malnutrition; J96.01 Acute respiratory failure with hypoxia; N18.4 Chronic kidney disease, stage 4 (severe); L51.1 Stevens-Johnson syndrome; B96.89 Other specified bacterial agents as the cause of diseases classified elsewhere; I46.9 Cardiac arrest, cause unspecified; E03.9 Hypothyroidism, unspecified; I12.9 Hypertensive chronic kidney disease with stage 1 through stage 4 chronic kidney disease, or unspecified chronic kidney disease; E78.5 Hyperlipidemia, unspecified; Z68.26 Body mass index [BMI] 26.0-26.9, adult; Z86.79 Personal history of other diseases of the circulatory system
CPT/HCPCS: 31500; 36415; 36600; 71045; 71250; 80048; 80053; 80076; 81001; 82728; 82803; 82948; 83605; 83615; 83690; 83735; 83880; 84100; 84145; 84484; 85025; 85378; 85610; 85730; 86140; 87040; 87077; 87088; 87186; 92950; 93005; 94002; 94660; 99291; G0378; J1100; J1650; J2543; J2704; J3370; J3490; J7042; J7070; U0003